=== PATIENT | female | born 1950 | race Two or more races ===

== ENCOUNTER 2023-04-01 10:53 | Outpatient (CLI) | payer OTHER | END 2023-04-01 10:55 | disposition home or self-care (01) | LOC: SONOGRAMA 10:53 | PROVIDERS: ATTEND Internal Medicine | DX: E04.9 Nontoxic goiter, unspecified (principal) ==

== ENCOUNTER 2023-04-22 13:04 | Outpatient (CLI) | payer OTHER | END 2023-04-22 13:06 | disposition home or self-care (01) | LOC: NUCLEAR 13:04 | PROVIDERS: ATTEND Internal Medicine | DX: Z13.820 Encounter for screening for osteoporosis (principal) ==

== ENCOUNTER 2024-08-25 13:33 | Outpatient (CLI) | payer OTHER | END 2024-08-25 13:36 | disposition home or self-care (01) | LOC: RAD 13:33 | PROVIDERS: ATTEND Physical Medicine & Rehabilitation | DX: M16.12 Unilateral primary osteoarthritis, left hip (principal); M17.12 Unilateral primary osteoarthritis, left knee ==

== ENCOUNTER 2025-01-21 14:13 | Outpatient (CLI) | payer OTHER | END 2025-01-21 14:14 | disposition home or self-care (01) | LOC: RAD 14:13 | PROVIDERS: ATTEND Physical Medicine & Rehabilitation | DX: M16.12 Unilateral primary osteoarthritis, left hip (principal) ==